=== PATIENT | male | born 1965 | race Caucasian/White ===

== ENCOUNTER 2024-11-05 11:41 | Day surgery (SDC) | payer BC, SELFPAY ==
[2024-11-05 12:06] VITALS: BP 127/94; PULSE 69; RESP 16; TEMP 36.6; O2SAT 97; BMI 34.9
[2024-11-05] MEDS: LACTATED RINGERS 1000ML 1,000 ML 50 ML IV (12:12)
--- NOTE | 2024-11-05 12:23 | P.PNANES_ITS ---
[facility] Disclaimer: The information contained in this section may have been updated after the patient was seen, as this information can be updated by other users. Medical History Fatty liver Kidney failure High blood cholesterol Hiatal hernia Hemorrhoids GERD (gastroesophageal reflux disease) Surgical History (Updated 11/05/24 @ 12:03 by Radha Yeh RN) History of esophagogastroduodenoscopy (EGD) History of colonoscopy History of surgery on arm History of surgery on left wrist H/O inguinal hernia repair H/O vasectomy Family History (Updated 11/05/24 @ 12:03 by Radha Yeh RN) Other Family history of colon cancer in mother Social History (Updated 11/05/24 @ 12:03 by Radha Yeh RN) Smoking Status: Never smoker alcohol intake: never substance use type: denies use current occupational status: employed Travel in the last 8 weeks: None [facility] Anesthesia Checklist Patient Identification Patient Identification: Arm Band Structural Data Admitted From: Home Planned Operative Procedure/s: EGD/Colonoscopy Consent for Planned Operative Procedure(s) Verified: Yes Verified Documents: Surgical Consent and History and Physical NPO Status Verified Time NPO: 10:30 (finished prep) Additional verifications Anesthesia Reactions: No Airway Assessment Mallampati Score:: Class II C-Spine Mobility Assessed: Yes TMJ Mobility Assessed: Yes Dentition: Edentulous Neurological Assessment Level of Consciousness: Awake, Alert and Appropriate Anesthesia Plan Anesthesia Risk discussed: Yes Anesthesia Plan: Verified ASA Class: II Anesthesia Type: MAC
[2024-11-05 12:43] VITALS: O2SAT 97
--- NOTE | 2024-11-05 12:44 | P.HP_ITS ---
History of Present Illness *Admission Date: 11/05/24 *Reason for visit:: Complicated GERD and screening colonoscopy *History of present illness: Mr. Jose is a 58-year-old gentleman who is here for diagnostic EGD secondary to complicated GERD/reflux esophagitis and here for initial screening colonoscopy. The examination is deemed medically necessary for EGD and colonoscopy. The patient has been seen, interviewed and examined prior to the procedure by both myself and the anesthesia provider. [facility] Disclaimer: The information contained in this section may have been updated after the patient was seen, as this information can be updated by other users. Medical History (Updated 11/05/24 @ 12:45 by Vijay Dhillon II, MD) Fatty liver Kidney failure High blood cholesterol Hiatal hernia Hemorrhoids GERD (gastroesophageal reflux disease) Surgical History (Updated 11/05/24 @ 12:03 by Radha Yeh RN) History of esophagogastroduodenoscopy (EGD) History of colonoscopy History of surgery on arm History of surgery on left wrist H/O inguinal hernia repair H/O vasectomy Family History (Updated 11/05/24 @ 12:03 by Radha Yeh RN) Other Family history of colon cancer in mother Social History (Updated 11/05/24 @ 12:24 by Brian Landa CRNA) Smoking Status: Never smoker alcohol intake: never substance use type: denies use current occupational status: employed Travel in the last 8 weeks: None Have you lived/traveled outside [place] in past 30 days?: No Contact w/someone who lives/traveled outside [place] past 30 days?: No Exposure to someone with infectious disease in past 14 days?: No Do you have a fever (greater than 100.4 F or 38 C)?: No Have you tested positive for COVID-19: No Exposed to someone with COVID-19 in past 14 days?: No Do you have a sore throat?: No Do you have a cough?: No Do you have any weakness?: No Do you have any diarrhea?: No Are you experiencing any unusual bleeding?: No Do you have any muscle aches/pain?: No Do you have any abdominal pain?: No Are you experiencing loss of taste or smell?: No Review of Systems Review of Systems Review of systems (narrative): Negative *Cardiovascular Comments: Negative *Gastrointestinal Comments: Negative *Genitourinary Comments: Negative *Musculoskeletal Comments: Negative *Neurologic Comments: Negative Meds Home Medications and Allergies Home Medications ?Medication ?Instructions ?Recorded ?Confirmed ?Type ascorbic acid (vitamin C) 1,000 mg 1 g PO Q6H 09/10/24 11/05/24 History capsule mecobalamin (vitamin B12) 1,000 1,000 mcg PO DAILY 09/10/24 11/05/24 History mcg chewable tablet (B12 Active) omeprazole 40 mg capsule,delayed 40 mg PO DAILY 09/10/24 11/05/24 History release tamsulosin 0.4 mg capsule 0.4 mg PO DAILY PRN Kidney Stones 09/10/24 11/05/24 History vonoprazan 20 mg tablet (Voquezna) 20 mg PO DAILY #90 tabs 10/02/24 11/05/24 Rx New Prescriptions to Start Prescriptions: Allergies Allergy/AdvReac Type Severity Reaction Status Date / Time Penicillins Allergy Rash Verified 11/05/24 12:05 Exam Data for Last 24 hours Vital signs and Labs for Last 24 Hours: Temp Pulse Resp BP Pulse Ox O2 Del Method 97.8 F 69 16 127/94 H 97 Room Air 11/05/24 12:06 11/05/24 12:06 11/05/24 12:06 11/05/24 12:06 11/05/24 12:06 11/05/24 12:06 I & O for Last 24 hours: Intake & Output 11/02/24 11/03/24 11/04/24 11/05/24 23:59 23:59 23:59 23:59 Weight 160 lb *Routine HEENT Exam Head: Present normocephalic Eye: Present EOMI and PERRL ENT: Present mucous membranes moist *Routine Neck Exam Neck: Present supple *Routine Respiratory Exam Respiratory: Present CTA bilaterally *Routine Cardiovascular Exam Cardiovascular: Present RRR *Routine Abdominal Exam Abdominal: Present soft and normoactive bowel sounds; Absent tenderness *Routine Rectal Exam Rectal:: deferred *Routine Genitalia Exam Genitalia:: deferred *Routine Extremities Exam Extremities: Absent cyanosis, clubbing or edema *Routine Skin Exam Skin: Present warm; Absent rash *Routine Neurological Exam Neurological: Present alert and oriented X3 Assessment and Plan *Assessment and plan (1) Reflux esophagitis: Status: Acute Category: Medical Code(s): K21.00 - Gastro-esophageal reflux disease with esophagitis, without bleeding (2) GERD (gastroesophageal reflux disease): Status: Acute Category: Medical Code(s): K21.9 - Gastro-esophageal reflux disease without esophagitis (3) Hemorrhoid prolapse: Status: Acute Category: Medical Code(s): K64.8 - Other hemorrhoids (4) Screening for colon cancer: Status: Acute Category: Medical Code(s): Z12.11 - Encounter for screening for malignant neoplasm of colon Plan A/P: 1. Complicated GERD with reflux esophagitis and prior peptic stricture for upper endoscopy and screening for colonoscopy is the preprocedural diagnosis. He does have a prolapsing hemorrhoid and may consider banding. The patient will be anesthetized/sedated using MAC sedation. The patient has been seen and examined. Cardiac and lung assessment prior to the examination is stable. Proceed with planned EGD and colonoscopy
--- NOTE | 2024-11-05 12:49 | P.PCN_ITS ---
[facility] Procedure Note Date: 11/05/24 Time: 12:59 Procedure Note:: Upper Endoscopy Procedure Report: Esophagogastroduodenoscopy with cold biopsies and TTS balloon dilation Endoscopost: Vijay Dhillon II, MD Referring Physician: Jeff Gama MD Date of Procedure: November 05, 2021 Equipment: Olympus GIF 190 standard upper endoscope Sedation: MAC sedation Indications: Mr. Jose is a 58-year-old gentleman who is here for diagnostic EGD and screening colonoscopy. The patient does have a history of complicated GERD with EGD showing grade C?D reflux esophagitis and peptic stricture in July 2021. He has markedly improved with omeprazole but still gets some breakthrough reflux at times. He no longer has the dysphagia but does get some bloating, belching, heartburn at times with some indigestion. The patient also reports some bowel irregularity with loose stools that sometimes alternate with hard bowel movements. He does have hemorrhoids with prolapse. His prior CAT scan had shown marked steatosis. He has not had any recent labs to check liver chemistries. He does have a lot of stress. He rarely has some bright red blood. He has not had any recent colonoscopy and previously had been reluctant to schedule because of finances. The patient's last colonoscopy was in 2014 and 2016. The patient did have a prior food impaction and went to [facility] in June 2021 and had clearance (February). Procedure: Prior to the procedure, a history and physical exam was performed, and patient's medications and allergies were reviewed. The risks, benefits and alternatives of the sedation and procedure were discussed with the patient. All questions were answered and informed consent was obtained. The patient was brought to the procedure room. Patient identification and proposed procedure were verified by the physician and the nurse. The patient was placed in a left lateral decubitus position and the scope was passed under direct vision. Throughout the procedure, the patient's blood pressure, pulse, and oxygen saturations were monitored continuously. The upper GI endoscopy was accomplished without difficulty. The patient tolerated the procedure well. Findings: The scope was passed directly into the upper esophagus and advanced to the third portion of the duodenum. The post bulbar duodenum and duodenal bulb were normal with normal mucosa and conniventes. The scope was withdrawn through a normal duodenal bulb and pylorus into the stomach. There was some very mild linear reactive gastropathy of the antrum. There was mild chronic gastritis of the body and fundus. Biopsies were taken from the lesser curvature to rule out H. pylori. Upon retroflexion there was a very small sliding 1 to 2 cm hiatal hernia. The scope was then withdrawn into the esophagus. There is no evidence of reflux esophagitis or Cruz's. There was a serrated Z-line with 2 very short tongues of salmon-colored mucosa that did not meet criteria for Cruz's. These were biopsied (lower esophagus). There is no evidence of peptic stricture, Schatzki's ring, corrugation or furrowing. There were no esophageal strictures. There were tertiary contractions and evidence of mild esophageal dysmotility. The entire esophagus was dilated to 60 [place]/20 mm with a TTS hydrostatic balloon. There was mild resistance at the cricopharyngeus. The remainder of the esophageal mucosa was normal. Impression: 1. Mild cricopharyngeal spasm 2. Nonerosive GERD with mild esophageal dysmotility and very small sliding hiatal hernia 3. Mild linear reactive gastropathy Plan: I will follow-up the biopsies. I would continue PPI therapy. I will proceed with screening colonoscopy.
--- NOTE | 2024-11-05 13:02 | P.PCN_ITS ---
[facility] Procedure Note Date: 11/05/24 Time: 13:21 Procedure Note:: Colonoscopy Procedure Report: Colonoscopy with cold snare polypectomy and hemorrhoid band ligation Endoscopist: Vijay Dhillon II, MD Referring physician: Jeff Gama MD Date of Procedure: November 05, 2024 Equipment: Olympus 190 variable stiffness pediatric colonoscope Sedation: MAC sedation Indication: Mr. Jose is a 58-year-old gentleman who is here for diagnostic EGD and screening colonoscopy. The patient does have a history of complicated GERD with EGD showing grade C?D reflux esophagitis and peptic stricture in July 2021. He has markedly improved with omeprazole but still gets some breakthrough reflux at times. He no longer has the dysphagia but does get some bloating, belching, heartburn at times with some indigestion. The patient also reports some bowel irregularity with loose stools that sometimes alternate with hard bowel movements. He does have hemorrhoids with prolapse. His prior CAT scan had shown marked steatosis. He has not had any recent labs to check liver chemistries. He does have a lot of stress. He rarely has some bright red blood. He has not had any recent colonoscopy and previously had been reluctant to schedule because of finances. The patient's last colonoscopy was in 2014 and 2016. The patient did have a prior food impaction and went to [facility] in June 2021 and had clearance (February). Procedure: Prior to the procedure, a history and physical exam was performed, and patient's medications and allergies were reviewed. The risks, benefits and alternatives of the sedation and procedure were discussed with the patient. All questions were answered and informed consent was obtained. The patient was brought to the procedure room. Patient identification and proposed procedure were verified by the physician and the nurse. The patient was placed in a left lateral decubitus position and the scope was passed under direct vision. Throughout the procedure, the patient's blood pressure, pulse, and oxygen saturations were monitored continuously. The colonoscopy was accomplished without difficulty. The patient tolerated the procedure well. Findings: On digital rectal examination there was normal rectal tone. There were no external hemorrhoids. The prostate was 2+, smooth, soft, symmetric without nodules. The colonoscope was introduced through the anal canal to the rectum and advanced to the cecum. The ileocecal valve and appendiceal orifice were identified. The scope was advanced a short distance into the ileum which appeared grossly normal. The scope was then withdrawn into the colon. There were 8 colon polyps (ascending x 3 (4, 4 and 5 mm), transverse x 4 (3, 4, 4 and 5 mm) and descending x 1 (4 mm)). These were all removed via cold snare polypectomy. The remaining cecum, ascending, transverse, descending, sigmoid and rectum were grossly normal. There were no mucosal abnormalities identified. Upon retroflexion within the rectum there were grade 2-3 internal hemorrhoids. The hemorrhoids were banded using 3 bands on 3 columns of hemorrhoids with excellent ligation effect. The preparation was excellent throughout with [place] Preparation Score of 9. The cecal time was 16 minutes. Impression: 1. Colonic polyps x 8 2. Grade 2-3 internal hemorrhoids status post band ligation x 3 Plan: I will follow-up the polyp histology and recommend repeat surveillance colonoscopy again in 3 years. I would encourage psyllium bulking fiber supplementation on a long-term daily maintenance basis.
[2024-11-05 13:31] VITALS: BP 111/75; PULSE 69; RESP 16; TEMP 36.3; O2SAT 95
[2024-11-05 13:41] VITALS: BP 123/74; PULSE 65; RESP 17; O2SAT 96
[2024-11-05 13:51] VITALS: BP 126/73; PULSE 64; RESP 16; O2SAT 98
[2024-11-05] MEDS: HYDROCODONE/APAP 5/325 MG TABLET 1 TAB PO (13:54)
[2024-11-05 15:08] VITALS: BP 124/75; PULSE 61; RESP 17; O2SAT 97
== END 2024-11-05 15:08 | disposition home or self-care (01) ==
PROVIDERS: PCP Family Medicine; Visit Provider Internal Medicine Gastroenterology
PROC: 0DJ08ZZ Inspection of Upper Intestinal Tract, Via Natural or Artificial Opening Endoscopic (ICD-10-PCS; CPT 45378; principal; 2024-11-05 13:30)
DX: K21.00 Gastro-esophageal reflux disease with esophagitis, without bleeding (principal); K21.9 Gastro-esophageal reflux disease without esophagitis; K64.8 Other hemorrhoids; Z12.11 Encounter for screening for malignant neoplasm of colon; Z98.890 Other specified postprocedural states; K59.4 Anal spasm; K29.70 Gastritis, unspecified, without bleeding; K44.9 Diaphragmatic hernia without obstruction or gangrene; K31.9 Disease of stomach and duodenum, unspecified; K22.4 Dyskinesia of esophagus; J39.2 Other diseases of pharynx; K63.5 Polyp of colon
CPT/HCPCS: 43239; 43249; 45385; 45398; C1726; C1889; J2704; J7120